=== PATIENT | male | born 1990 | race Caucasian/White ===

== ENCOUNTER 2017-05-14 19:50 | Emergency (ER) | payer OTHER ==
[2017-05-14 20:27] VITALS: BP 120/60
[2017-05-14] MEDS ORDERED: FUL-GLO OP ONE (21:36)
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
[2017-05-15] MEDS ORDERED: FUL-GLO OP ONE (00:23)
== END 2017-05-14 22:15 | disposition home or self-care (01) ==
LOC: ED 19:50
DX: Z04.1 Encounter for examination and observation following transport accident (principal)
CPT/HCPCS: 99282